=== PATIENT | female | born 1960 | race Caucasian/White ===

== ENCOUNTER 2016-11-29 08:39 | Emergency (ER) | payer BC ==
[2016-11-29] MEDS ORDERED: PROMETHAZINE HCL 25 MG in 0.9 % SODIUM CHLORIDE 100ML 50 ML IVP ONE (09:07)
[2016-11-29] MEDS ORDERED: 0.9 % SODIUM CHLORIDE 1,000 ML BAG IV ONE (09:08)
[2016-11-29 09:14] LABS: BASO % 0.5 % (0-6); EOS % 1.7 % (0-6); HEMATOCRIT 35.7 % (35.0-47.0); HEMOGLOBIN 11.7 gm/dl (11.6-16.0); LYMPH % 26.1 % (16-45); MEAN CELL VOLUME 86.4 fl (81-97); MEAN CORPUSCULAR HEMOGLOBIN 28.3 pg (27-33); MEAN CORPUSCULAR HGB CONC 32.8 g/dl (32-36); MEAN PLATELET VOLUME 8.6 fl (7.4-10.4); MONO % 9.7 % (0-9); PLATELET COUNT 329 K/uL (130-400); RED BLOOD COUNT 4.13 M/uL (3.80-5.40); RED CELL DISTRIBUTION WIDTH 14.9 % (11.5-14.5); WHITE BLOOD COUNT W/O DIFF 5.8 K/uL (4.2-12.2)
[2016-11-29 09:27] LABS: ALBUMIN 3.2 gm/dL (3.5-5.0); ALKALINE PHOSPHATASE 133 U/L (38-126); ALT/SGPT 64 U/L (9-52); ANION GAP 10.9 (7-16); AST/SGOT 40 U/L (14-36); BLOOD UREA NITROGEN 11 mg/dL (7-17); CARBON DIOXIDE 25.1 mmol/L (22-30); CREATININE 0.7 mg/dL (0.52-1.04); EST GLOMERULAR FILTRATION RATE > 60 ml/min; GLUCOSE,RANDOM 120 mg/dL (70-110); TOTAL PROTEIN 6.3 gm/dL (6.3-8.2)
--- NOTE | 2016-11-29 09:59 | Emergency Department Record ---
History of Present Illness - General Chief Complaint: Dizziness Stated Complaint: DIZZY Time Seen by Provider: 11/29/16 08:44 Source: Patient, Family Mode of Arrival: Wheelchair Limitations: No limitations - History of Present Illness Initial Comments: pt has been being treated for a sinus infection for the last week. last night she developed sudden onset vertigo that is worse if she moves. she has also had nausea and vomiting and difficulty walking because of the vertigo Onset/Timin -: Days(s) Timing: Gradual onset Description: Difficulty walking, Lightheadedness, Off-balance, "Room spinning" History of Same: No History of Trauma: No Severity: Moderate Improves With: Nothing - [place] Coma Scale Eye Response: (4) Open spontaneously Motor Response: (6) Obeys commands Verbal Response: (5) Oriented Judy Total: 15 - Symptoms of Stroke Symptoms of stroke: Vertigo - Related Data Home Medications Medication Instructions Recorded Confirmed Last Taken Diphenhydramine HCl [Benadryl] 25 mg PO Q6H PRN 11/29/16 11/29/16 1 Day Ago Previous Rx's Medication Instructions Recorded Meclizine HCl [Antivert] 25 mg PO Q8H #14 tablet 11/29/16 Allergies Allergy/AdvReac Type Severity Reaction Status Date / Time lanolin Allergy HIVES Verified 11/29/16 09:51 metoclopramide HCl Allergy lock jaw Verified 11/29/16 09:51 [From Reglan] prochlorperazine Allergy lock jaw Verified 11/29/16 09:51 [From Compazine] prochlorperazine edisylate Allergy lock jaw Verified 11/29/16 09:51 [From Compazine] prochlorperazine maleate Allergy lock jaw Verified 11/29/16 09:51 [From Compazine] benzocaine AdvReac itching Verified 11/29/16 09:51 budesonide AdvReac itching Verified 11/29/16 09:51 dibucaine AdvReac itching Verified 11/29/16 09:51 ethylenediamine AdvReac itching Verified 11/29/16 09:51 formaldehyde AdvReac itching Verified 11/29/16 09:51 hydrocortisone AdvReac itching Verified 11/29/16 09:51 Isothiazolinones AdvReac itching Verified 11/29/16 09:51 methylisothiazolinone AdvReac itching Verified 11/29/16 09:51 neomycin AdvReac itching Verified 11/29/16 09:51 quaternium 15 AdvReac itching Verified 11/29/16 09:51 tetracaine AdvReac itching Verified 11/29/16 09:51 thimerosal AdvReac itching Verified 11/29/16 09:51 tixocortol AdvReac itching Verified 11/29/16 09:51 vancomycin AdvReac itching Verified 11/29/16 09:51 Travel Screening - Travel/Exposure Within Last 30 Days Have you traveled within the last 30 days?: No - Travel/Exposure Within Last Year Have you traveled outside the [place] in the last year?: No - Additonal Travel Details Have you been exposed to anyone with a communicable illness?: No - Travel Symptoms Symptom Screening: None Review of Systems Reviewed: No additional complaints except as noted below Constitutional: Reports: As per HPI. Denies: Chills, Fever, Malaise, Night sweats, Weakness, Weight change Eyes: Reports: As per HPI. Denies: Eye discharge, Eye pain, Photophobia, Vision change ENT: Reports: As per HPI. Denies: Congestion, Dental pain, Ear pain, Epistaxis , Hearing loss, Throat pain Respiratory: Reports: As per HPI. Denies: Cough, Dyspnea, Hemoptysis, Stridor, Wheezes Cardiovascular: Reports: As per HPI. Denies: Arrhythmia, Chest pain, Dyspnea on exertion, Edema, Murmurs, Orthopnea, Palpitations, Paroxysmal nocturnal dyspnea, Rheumatic Fever, Syncope Endocrine: Reports: As per HPI. Denies: Fatigue, Heat or cold intolerance, Polydipsia, Polyuria Gastrointestinal: Reports: As per HPI. Denies: Abdominal pain, Constipation, Diarrhea, Hematemesis, Hematochezia, Melena, Nausea, Vomiting Genitourinary: Reports: As per HPI. Denies: Abnormal menses, Discharge, Dyspareunia, Dysuria, Frequency, Hematuria, Incontinence, Retention, Urgency Musculoskeletal: Reports: As per HPI. Denies: Arthralgia, Back pain, Gout, Joint swelling, Myalgia, Neck pain Skin: Reports: As per HPI. Denies: Bruising, Change in color, Change in hair/ nails, Lesions, Pruritus, Rash Neurological: Reports: As per HPI. Denies: Abnormal gait, Confusion, Headache, Numbness, Paresthesias, Seizure, Tingling, Tremors, Vertigo, Weakness Psychiatric: Reports: As per HPI. Denies: Anxiety, Auditory hallucinations, Depression, Homicidal thoughts, Suicidal thoughts, Visual hallucinations Hematological/Lymphatic: Reports: As per HPI. Denies: Anemia, Blood Clots, Easy bleeding, Easy bruising, Swollen glands Past Medical History - SOCIAL HISTORY Smoking Status: Never smoker Alcohol Use: Occassional Drug Use: None - RESPIRATORY Hx Respiratory Disorders: No - CARDIOVASCULAR Hx Hypotension: Yes - NEURO Hx Headaches: Yes Comment:: sinus - GI Hx Reflux: Yes Hx Hiatal Hernia: Yes - Hx Genitourinary Disorders: No - ENDOCRINE Hx Diabetes: No Hx Thyroid Disease: No - PSYCH Hx Psych Problems: No - HEMATOLOGY/ONCOLOGY Hx Anemia: Yes Hx Cancer: Yes (breast CA) Family Medical History Any Significant Family History?: Yes Family Hx Comment (NOT TO BE USED IN PLACE OF ITEMS BELOW): none really Physical Exam - General General Appearance: Alert, Oriented x3, Cooperative, Moderate distress - Head Head exam: Normal inspection - Eye Eye exam: Normal appearance, PERRL, EOMI, Nystagmus Pupils: Normal accommodation - ENT ENT exam: Normal exam, Mucous membranes moist, Normal external ear exam, Normal orophraynx, TM's normal bilaterally Ear exam: Normal external inspection. negative: External canal tenderness Nasal Exam: Normal inspection. negative: Discharge, Sinus tenderness Mouth exam: Normal external inspection, Tongue normal Teeth exam: Normal inspection. negative: Dental caries Throat exam: Normal inspection. negative: Tonsillar erythema, Tonsillar exudate - Neck Neck exam: Normal inspection, Full ROM. negative: Tenderness - Respiratory Respiratory exam: Normal lung sounds bilaterally. negative: Respiratory distress - Cardiovascular Cardiovascular Exam: Normal rhythm, Normal heart sounds, Tachycardia - GI/Abdominal GI/Abdominal exam: Soft, Normal bowel sounds. negative: Tenderness - Rectal Rectal exam: Deferred - exam: Deferred - Extremities Extremities exam: Normal inspection, Full ROM, Normal capillary refill. negative: Tenderness - Back Back exam: Reports: Normal inspection, Full ROM. Denies: Muscle spasm, Rash noted, Tenderness - Neurological Neurological exam: Alert, CN II-XII intact, Normal gait, Oriented X3 - Psychiatric Psychiatric exam: Normal affect, Normal mood - Skin Skin exam: Dry, Intact, Normal color, Warm Course Vital Signs 11/29/16 08:41 Temperature 97.9 F Pulse Rate 107 H Respiratory 18 Rate Blood Pressure 118/70 Pulse Ox 95 - Reevaluation(s) Reevaluation #1: 11/29/16 10:06 pt is doing better. 11/29/16 10:25 Medical Decision Making - Management Options MDM Management: Additional Work-up Planned (e.g. ADM/Transfer/OP Study) - Data Complexity MDM Data: Labs Ordered and/or Reviewed, X-Ray Ordered and/or Reviewed - Lab Data Result diagrams: 11/29/16 09:05 11/29/16 09:05 Lab Results 11/29/16 11/29/16 11/29/16 Range/Units 09:05 09:05 09:05 WBC 5.8 (4.2-12.2) K/uL RBC 4.13 (3.80-5.40) M/uL Hgb 11.7 (11.6-16.0) gm/dl Hct 35.7 (35.0-47.0) % MCV 86.4 (81-97) fl MCH 28.3 (27-33) pg MCHC 32.8 (32-36) g/dl RDW 14.9 H (11.5-14.5) % Plt Count 329 (130-400) K/uL MPV 8.6 (7.4-10.4) fl Gran % 62.0 (47-80) % Lymphocytes % 26.1 (16-45) % Monocytes % 9.7 H (0-9) % Eosinophils % 1.7 (0-6) % Basophils % 0.5 (0-6) % Sodium 138 (136-145) mmol/L Potassium 3.7 (3.5-5.1) mmol/L Chloride 102 (98-107) mmol/L Carbon Dioxide 25.1 (22-30) mmol/L Anion Gap 10.9 (7-16) BUN 11 (7-17) mg/dL Creatinine 0.7 (0.52-1.04) mg/dL Estimated GFR > 60 ml/min Random Glucose 120 H (70-110) mg/dL Calcium 8.7 (8.5-10.1) mg/dL Total Bilirubin 0.40 (0.2-1.3) mg/dL AST 40 H (14-36) U/L ALT 64 H (9-52) U/L Alkaline Phosphatase 133 H (38-126) U/L NT-Pro-B Natriuret Pep 164.00 H (<125) pg/mL Total Protein 6.3 (6.3-8.2) gm/dL Albumin 3.2 L (3.5-5.0) gm/dL Globulin 3.1 (1.4-4.8) gm/dL Albumin/Globulin Ratio 1.0 L (1.1-1.8) Disposition Disposition: Discharge Clinical Impression: Benign positional vertigo Qualifiers: Laterality: bilateral Qualified Code(s): H81.13 - Benign paroxysmal vertigo, bilateral Disposition: Home, Self-Care Condition: (1) Good Instructions: Benign Paroxysmal Positional Vertigo (ED), Vertigo (ED) Additional Instructions: follow up with family doctor. return sooner if worse. no driving or climbing until symptoms clear. Prescriptions: Meclizine HCl [Antivert] 25 mg PO Q8H #14 tablet Forms: Patient Portal Access
--- NOTE | 2016-12-03 13:55 | CT SCAN REPORT ---
EXAM: HEAD CT WITHOUT CONTRAST HISTORY: ACUTE DIZZINESS. TECHNIQUE: Contiguous axial images from the cerebral convexities to the foramen magnum were obtained without contrast. Comparison: None. Hand dominance: Right. FINDINGS: Mild generalized atrophy of the brain. No acute intracranial hemorrhage, mass effect, or midline shift. No CT evidence of acute infarct. The ventricles, basal cisterns, and sulci are within normal limits. The osseous structures, soft tissues and paranasal sinuses are unremarkable. IMPRESSION: NO ACUTE INTRACRANIAL PROCESS. JOB NUMBER: [id number] MTDD
== END 2016-11-29 10:47 | disposition home or self-care (01) ==
LOC: ER 08:39
DX: H81.13 Benign paroxysmal vertigo, bilateral (principal); R11.2 Nausea with vomiting, unspecified
CPT/HCPCS: 70450; 80053; 83880; 84443; 85025; 96361; 96374; 99284; J2550; J7030

== ENCOUNTER 2016-12-08 09:06 | Emergency (ER) | payer BC ==
--- NOTE | 2016-12-08 09:21 | Emergency Department Record ---
History of Present Illness - General Chief complaint: Swelling of legs Stated complaint: SWELLING AND REDNESS OF LEGS Time Seen by Provider: 12/08/16 09:20 Source: Patient Mode of Arrival: Ambulatory Limitations: No limitations - History of Present Illness Initial comments: The patient is here due to a one month hx of swelling to her arms and legs. She denies any cough, congestion, SOB, CP, AP or back pain. She normally does have some lymphedema to her R arm due to a remote hx of breast CA but that is also worse. There is no hx of similar issues or problems. About a month ago the patient was on Keflex then Amox for a presumed sinus infection. MD Complaint: Extremity swelling Onset/Timin -: Month(s) Location: Bilateral, Hand, Lower Leg History of Same: Yes Severity scale (1-10): 3 Consistency: Constant Improves with: Nothing Associated Symptoms: Denies other symptoms - Related Data Home Medications Medication Instructions Recorded Confirmed Last Taken Clobetasol Propionate [Temovate] 30 gm TP ASDIR 12/08/16 12/08/16 Unknown Docusate Sodium [Colace] 100 mg PO DAILY 12/08/16 12/08/16 Unknown Ferrous Sulfate [Iron] 325 mg PO DAILY 12/08/16 12/08/16 Unknown Previous Rx's Medication Instructions Recorded Meclizine HCl [Antivert] 25 mg PO Q8H #14 tablet 11/29/16 Furosemide [Lasix] 20 mg PO DAILY #10 tablet 12/08/16 Potassium Chloride [Klor-Con] 20 meq PO DAILY #10 tab.prt.sr 12/08/16 Allergies Allergy/AdvReac Type Severity Reaction Status Date / Time lanolin Allergy HIVES Verified 11/29/16 09:51 metoclopramide HCl Allergy lock jaw Verified 11/29/16 09:51 [From Reglan] prochlorperazine Allergy lock jaw Verified 11/29/16 09:51 [From Compazine] prochlorperazine edisylate Allergy lock jaw Verified 11/29/16 09:51 [From Compazine] prochlorperazine maleate Allergy lock jaw Verified 11/29/16 09:51 [From Compazine] benzocaine AdvReac itching Verified 11/29/16 09:51 budesonide AdvReac itching Verified 11/29/16 09:51 dibucaine AdvReac itching Verified 11/29/16 09:51 ethylenediamine AdvReac itching Verified 11/29/16 09:51 formaldehyde AdvReac itching Verified 11/29/16 09:51 hydrocortisone AdvReac itching Verified 11/29/16 09:51 Isothiazolinones AdvReac itching Verified 11/29/16 09:51 methylisothiazolinone AdvReac itching Verified 11/29/16 09:51 neomycin AdvReac itching Verified 11/29/16 09:51 quaternium 15 AdvReac itching Verified 11/29/16 09:51 tetracaine AdvReac itching Verified 11/29/16 09:51 thimerosal AdvReac itching Verified 11/29/16 09:51 tixocortol AdvReac itching Verified 11/29/16 09:51 vancomycin AdvReac itching Verified 11/29/16 09:51 Travel Screening - Travel/Exposure Within Last 30 Days Have you traveled within the last 30 days?: No Review of Systems Constitutional: Denies: Chills, Fever Eyes: Denies: Eye discharge ENT: Denies: Congestion Respiratory: Denies: Cough, Dyspnea Past Medical History - SOCIAL HISTORY Smoking Status: Never smoker Alcohol Use: Occassional Drug Use: None - RESPIRATORY Hx Respiratory Disorders: No - CARDIOVASCULAR Hx Cardio Disorders: Yes Hx Hypotension: Yes - NEURO Hx Headaches: Yes Comment:: sinus - GI Hx Reflux: Yes Hx Hiatal Hernia: Yes - Hx Genitourinary Disorders: No - ENDOCRINE Hx Diabetes: No Hx Thyroid Disease: No - PSYCH Hx Psych Problems: No - HEMATOLOGY/ONCOLOGY Hx Anemia: Yes Hx Cancer: Yes (breast CA) Hx Chemotherapy: Yes Hx Radiation Therapy: Yes Family Medical History Any Significant Family History?: No Family Hx Comment (NOT TO BE USED IN PLACE OF ITEMS BELOW): none really Physical Exam - General General Appearance: Alert, Oriented x3, Cooperative, No acute distress - Head Head exam: Atraumatic, Normocephalic, Normal inspection - Eye Eye exam: Normal appearance, PERRL - ENT Throat exam: Normal inspection - Neck Neck exam: Normal inspection, Full ROM. negative: Tenderness - Respiratory Respiratory exam: Normal lung sounds bilaterally. negative: Respiratory distress - Cardiovascular Cardiovascular Exam: Regular rate, Normal rhythm, Normal heart sounds - GI/Abdominal GI/Abdominal exam: Soft, Normal bowel sounds. negative: Tenderness - Extremities Extremities exam: Full ROM, Normal capillary refill, Pedal edema (There is 3+ pedal edema bilaterally with 3+ R arm edema and 2+ L arm and hand edema. ), Tenderness (Very mild due to the edema.). negative: Normal inspection, Calf tenderness, Joint swelling - Neurological Neurological exam: Alert, Normal gait, Oriented X3. negative: Abnormal gait, Motor sensory deficit Course Vital Signs 12/08/16 09:09 Temperature 98.0 F Pulse Rate 111 H Respiratory 20 Rate Blood Pressure 110/78 Pulse Ox 99 - Reevaluation(s) Reevaluation #1: The patient is doing well at this time. She denies any CP or SOB. 12/08/16 11:00 Reevaluation #2: The patient is doing well. She denies any discomfort and has urinated multiple times. 12/08/16 12:30 Reevaluation #3: I did discuss the lab and xray results with the patient. I also did discuss the case with the patient's PCP Dr. Cline. Due to the workup being completely neg I do plan on discharging the patient to home on a short course of low dose lasix. She is to use compression stockings and monitor her weight and see Dr. Cline later this week. I also did discuss the UA results and do believe the 4+ bacteria is due to contamination since the patient has no symptoms and there are no WBC's found. I do not believe she needs an Abx to treat it. 12/08/16 14:31 Medical Decision Making - Data Complexity MDM Data: Labs Ordered and/or Reviewed, X-Ray Ordered and/or Reviewed - Lab Data Result diagrams: 12/08/16 09:40 12/08/16 09:40 - Radiology Data Radiology results: Report reviewed (CXR: Neg Abd CT: No acute dz process. Leg dopplers: Neg for DVT) Disposition Disposition: Discharge Clinical Impression: Edema, peripheral Disposition: Home, Self-Care Condition: (1) Good Instructions: Leg Edema (ED) Additional Instructions: Please take the Lasix and Potassium as directed. Please also use the compression stockings during the day. Please see Dr. Cline later this week as planned and monitor your weight daily and record for your PCP. Prescriptions: Potassium Chloride [Klor-Con] 20 meq PO DAILY #10 tab.prt.sr Furosemide [Lasix] 20 mg PO DAILY #10 tablet Forms: Patient Portal Access Time of Disposition: 14:26
[2016-12-08 09:59] LABS: HEMATOCRIT 34.3 % (35.0-47.0); HEMOGLOBIN 11.2 gm/dl (11.6-16.0); MEAN CELL VOLUME 86.8 fl (81-97); MEAN CORPUSCULAR HGB CONC 32.7 g/dl (32-36); MEAN PLATELET VOLUME 9.1 fl (7.4-10.4); PLATELET COUNT 301 K/uL (130-400); RED BLOOD COUNT 3.95 M/uL (3.80-5.40); RED CELL DISTRIBUTION WIDTH 15.3 % (11.5-14.5); WHITE BLOOD COUNT W/O DIFF 4.3 K/uL (4.2-12.2)
[2016-12-08 10:00] LABS: URINE APPEARANCE CLEAR; URINE BILIRUBIN NEGATIVE (NEGATIVE); URINE BLOOD NEGATIVE (NEGATIVE); URINE COLOR YELLOW; URINE GLUCOSE (UA) NEGATIVE (NEGATIVE); URINE KETONE NEGATIVE (NEGATIVE); URINE LEUKOCYTE ESTERASE NEGATIVE (NEGATIVE); URINE NITRITE POSITIVE (NEGATIVE); URINE PROTEIN NEGATIVE (NEGATIVE); URINE UROBILINOGEN 0.2 E.U./dL (0.20 - 1.00)
[2016-12-08 10:03] LABS: MEAN CORPUSCULAR HEMOGLOBIN 28.3 pg (27-33)
[2016-12-08 10:08] LABS: URINE RBC NONE SEEN (NONE SEEN); URINE WBC 0 - 2 (0-2/hpf)
[2016-12-08 10:09] LABS: URINE BACTERIA 4+
[2016-12-08 10:12] LABS: ALBUMIN 3.2 gm/dL (3.5-5.0); ALKALINE PHOSPHATASE 95 U/L (38-126); ALT/SGPT 50 U/L (9-52); ANION GAP 11.2 (7-16); AST/SGOT 40 U/L (14-36); BILIRUBIN,TOTAL 0.43 mg/dL (0.2-1.3); BLOOD UREA NITROGEN 11 mg/dL (7-17); CARBON DIOXIDE 24.8 mmol/L (22-30); CREATININE 0.8 mg/dL (0.52-1.04); EST GLOMERULAR FILTRATION RATE > 60 ml/min; GLUCOSE,RANDOM 93 mg/dL (70-110); TOTAL PROTEIN 6.3 gm/dL (6.3-8.2)
[2016-12-08 10:16] LABS: PLATELET ESTIMATE NORMAL (NORMAL)
[2016-12-08] MEDS ORDERED: FUROSEMIDE IV 20MG/2ML VIAL IVP ONE (10:27)
[2016-12-08 10:41] LABS: THYROID STIMULATING HORMONE 1.58 uIU/ml (0.465-4.68)
--- NOTE | 2016-12-10 12:25 | RADIOLOGY REPORT ---
EXAM: CHEST, TWO VIEWS HISTORY: BILATERAL LOWER EXTREMITY SWELLING. PREVIOUS RIGHT MASTECTOMY WITH RECONSTRUCTION. RIGHT UPPER EXTREMITY SWELLING. TECHNIQUE: PA and lateral upright views of the chest were obtained. Comparison: None. FINDINGS: The heart, mediastinum, and pulmonary vasculature are normal. The patient is status post right mastectomy with reconstruction. An implant is present. There are no visible acute infiltrates or effusions. There is minor linear atelectasis or scarring at the left lung base. The bones appear intact. IMPRESSION: 1. NO ACUTE CHEST PATHOLOGY. 2. MINOR LINEAR ATELECTASIS OR SCARRING AT THE LEFT LUNG BASE. 3. STATUS POST RIGHT MASTECTOMY WITH RECONSTRUCTION. JOB NUMBER: [id number] MTDD
--- NOTE | 2016-12-10 12:44 | CT SCAN REPORT ---
EXAM: CT SCAN OF THE ABDOMEN AND PELVIS WITHOUT CONTRAST HISTORY: BILATERAL UPPER AND LOWER EXTREMITY SWELLING. HISTORY OF LIVER DISEASE. TECHNIQUE: Standard CT imaging of the abdomen and pelvis was performed in the axial plane without contrast. Additional coronal and sagittal reformatted images were also performed. Comparison: None. FINDINGS: The lung bases are clear. Bilateral breast implants are in place and appear intact. There is diffuse fatty infiltration of the liver. No focal hepatic abnormalities are identified. The gallbladder, biliary tree, pancreas, spleen, and adrenal glands are normal. The kidneys and ureters are unremarkable. The aorta is normal in caliber. There is no retroperitoneal lymphadenopathy. Scattered nonenlarged retroperitoneal and mesenteric lymph nodes are present. There are numerous diverticula within the descending and sigmoid colon regions with no evidence for acute diverticulitis. The bowel and mesentery including the appendix are otherwise normal. There are no focal inflammatory changes. There is no free intraperitoneal air or fluid. The uterus has a lobulated appearance suggesting the presence of fibroids. The adnexa appear normal. The urinary bladder is unremarkable. There are borderline enlarged lymph nodes within the iliac chains bilaterally and inguinal regions bilaterally. The largest individual lymph node is present within the right inguinal region and measures 1.2 x 2 cm. There is mild subcutaneous edema within the pelvis of uncertain etiology. The visualized portions of the femoral veins and arteries appear normal. The iliac veins and IVC appear normal. There are mild multilevel degenerative changes within the spine. There are no acute osseous abnormalities. IMPRESSION: 1. NO ACUTE INTRAABDOMINAL PATHOLOGY. 2. NONSPECIFIC SUBCUTANEOUS EDEMA WITHIN THE PELVIS. 3. FATTY INFILTRATION OF THE LIVER. 4. COLONIC DIVERTICULOSIS WITH NO EVIDENCE FOR ACUTE DIVERTICULITIS. 5. SUSPECTED UTERINE FIBROIDS. 6. BORDERLINE ENLARGED ILIAC CHAIN AND INGUINAL REGION LYMPH NODES OF UNCERTAIN ETIOLOGY. JOB NUMBER: [id number] [facility]
--- NOTE | 2016-12-10 12:48 | US VENOUS DOPPLER REPORT ---
EXAM: BILATERAL LOWER EXTREMITY VENOUS DOPPLER ULTRASOUND HISTORY: BILATERAL LOWER EXTREMITY SWELLING. TECHNIQUE: Duplex Doppler evaluation of the lower extremity deep venous system was performed bilaterally in the standard fashion. Comparison: None. FINDINGS: There is subcutaneous edema within the calf regions bilaterally. The calf veins are only faintly visualized, but appear normal. The remaining veins of the lower extremities from the iliac veins through the proximal calf veins are normal. There is normal flow, phasicity, augmentation and compression. There is no evidence for deep venous thrombosis within either lower extremity. IMPRESSION: 1. SLIGHTLY LIMITED EXAMINATION OF THE CALF VEINS BILATERALLY WITH NO ABNORMALITIES IDENTIFIED. 2. OTHERWISE, UNREMARKABLE BILATERAL LOWER EXTREMITY VENOUS DOPPLER EXAMINATION. JOB NUMBER: [id number] MTDD
== END 2016-12-08 14:40 | disposition home or self-care (01) ==
LOC: ER 09:06
DX: R60.0 Localized edema (principal); Z85.3 Personal history of malignant neoplasm of breast
CPT/HCPCS: 71020; 74176; 80053; 81001; 84443; 85027; 93970; 96374; 99284; J1940